=== PATIENT | female | born 1960 | race Caucasian/White ===

== ENCOUNTER → 2018-02-13 14:00 | Outpatient (CLI) | payer BC, SELFPAY ==
--- NOTE | 2018-02-13 14:02 | CDU_ITS ---
Reason For Study: CVA Rt. Velocities/BP Lt. Velocities/BP Prox CCA 75/27 cm/sec. Prox CCA 88/35 cm/sec. Mid CCA 76/29 cm/sec. Mid CCA 82/33 cm/sec. Dist CCA 80/31 cm/sec. Dist CCA 89/32 cm/sec. Prox ICA 94/38 cm/sec. Prox ICA 67/25 cm/sec. Mid ICA 72/31 cm/sec. Mid ICA 107/50 cm/sec. Dist ICA 75/31 cm/sec. Dist ICA 61/16 cm/sec. Rt. ICA/CCA = 1.25. Lt. ICA/CCA = 1.3. Prox ECA 126/313 cm/sec. Prox ECA 72/19 cm/sec. Rt. Vert. 27/9 cm/sec. Lt. Vert. 53/22 cm/sec. Right Extracranial There is intimal thickening but no significant atherosclerotic plaque noted in the right common carotid artery. There is heterogeneous, irregular atherosclerotic plaque noted in the right internal carotid artery. There is intimal thickening but no significant atherosclerotic plaque noted in the right external carotid artery. Antegrade flow is noted in the right vertebral artery. Left Extracranial There is intimal thickening but no significant atherosclerotic plaque noted in the left common carotid artery. There is heterogeneous, irregular atherosclerotic plaque noted in the left internal carotid artery. There is intimal thickening but no significant atherosclerotic plaque noted in the left external carotid artery. Antegrade flow is noted in the left vertebral artery. Procedure Carotid Duplex 04254. Exam performed in department. Interpretation Summary Mild (<50%) stenosis right extracranial internal carotid. Mild (<50%) stenosis left extracranial internal carotid. Flow within the vertebral arteries is antegrade bilaterally. Ordering Physician: Taz Schultz Referring Physician: RAYMOND KELLY Performed By: Ellie Bailey, LEIGH ANNCS, RVT
== END ==
PROVIDERS: Family Provider Family Medicine; PCP Family Medicine; Visit Provider Internal Medicine Cardiovascular Disease
DX: I63.9 Cerebral infarction, unspecified (principal)
CPT/HCPCS: 93880

== ENCOUNTER → 2019-11-23 | Outpatient (CLI) | payer OTHER, SELFPAY ==
[2019-11-20 14:35] VITALS: BMI 27.6
[2019-11-23 09:17] LABS: AST(SGOT) 21 U/L (15-37); Alanine Aminotransfer ALT/SGPT 42 U/L (13-56); Albumin, Serum 3.7 g/dL (3.2-5.0); Alkaline Phosphatase 114 U/L (45-117); Anion Gap 5 (5-15); BUN 14 mg/dL (7-18); BUN/Creat Ratio 12.6 RATIO (10-20); Bilirubin, Direct 0.22 mg/dL (0.00-0.30); Calcium,Total 9.5 mg/dL (8.5-10.1); Chloride 104 mmol/L (98-107); Cholesterol 137 mg/dL (200); Creatinine, Serum 1.11 mg/dL (0.55-1.02); EST Glomerular Filtration Rate 54 mL/min (>60); Est Glom Filt Rate - Afr Amer 65 mL/min (>60); Globulin 3.9 g/dL (2.2-4.2); Glucose 101 mg/dL (74-106); High Density Lipoprotein 30 mg/dL; Potassium 4.1 mmol/L (3.5-5.1); Protein, Total 7.6 g/dL (6.4-8.2); Sodium Level 139 mmol/L (136-145); Triglycerides 255 mg/dL; Very Low Density Lipoprotein 51 mg/dL (5-40)
== END | disposition home or self-care (01) ==
PROVIDERS: PCP Family Medicine; Referring Provider Internal Medicine Cardiovascular Disease; Visit Provider Internal Medicine Cardiovascular Disease
DX: E78.5 Hyperlipidemia, unspecified (principal); I25.10 Atherosclerotic heart disease of native coronary artery without angina pectoris; I10 Essential (primary) hypertension
CPT/HCPCS: 36415; 80048; 80061; 80076

== ENCOUNTER → 2019-12-04 | Outpatient (CLI) | payer OTHER, SELFPAY ==
[2019-11-20 14:35] VITALS: BMI 27.6
--- NOTE | 2019-12-04 14:52 | ECHOD_ITS ---
Reason For Study: CAD/ASHD Procedure This was a 2D Doppler, Color Flow transthoracic echocardiogram. Exam performed in department. Left Ventricle Normal size and thickness. The estimated ejection fraction is 65 %. Stage 2 diastolic dysfunction. No regional wall motion abnormalities noted. Right Ventricle Normal size and thickness. Normal systolic function. Atria Normal left atrium. Normal right atrium. Normal atrial septum. Mitral Valve The mitral valve is structurally normal. No prolapse or stenosis seen. Tricuspid Valve Normal tricuspid valve. Trivial tricuspid valve insufficiency. Right ventricular systolic pressure estimated to be 26 mmHg. Aortic Valve Normal aortic valve. Trisinus/trileaflet aortic valve. Pulmonic Valve Normal pulmonic valve. Great Vessels Normal aortic root. Normal arch. Normal inferior vena cava. Inferior vena cava collapse with sniff. Pericardium/Pleural No pericardial effusion. MMode/2D Measurements & Calculations LVIDd: 4.5 cm IVSd: 0.81 cm Ao root diam: 2.7 cm LVIDs: 3.0 cm LVPWd: 0.83 cm RVDd: 2.5 cm FS: 34.5 % LAV(MOD-bp): 52.0 ml LA A4 area: 16.3 cm2 LA dimension(2D): 3.1 cm LAV(MOD-bp) Indexed: 29.1 ml/m2 LAV(MOD-sp2): 51.1 ml LAV(MOD-sp4): 45.0 ml RA A4 area: 11.9 cm2 Time Measurements MV dec time: 0.17 sec Doppler Measurements & Calculations MV E max oh: 88.0 cm/sec Lat Peak E' Oh: 8.8 cm/sec Med Peak E' Oh: 7.7 cm/sec MV A max oh: 76.9 cm/sec E/E' lat: 10.0 E/E' med: 11.5 MV E/A: 1.1 Ao V2 max: 112.8 cm/sec LV V1 max: 94.0 cm/sec PA V2 max: 91.1 cm/sec Ao max P.1 mmHg LV V1 max P.5 mmHg TR max oh: 231.7 cm/sec TR max P.5 mmHg Interpretation Summary The estimated ejection fraction is 65 %. Stage 2 diastolic dysfunction. Trivial tricuspid valve insufficiency. Right ventricular systolic pressure estimated to be 26 mmHg. There is no comparison study available. Ordering Physician: Taz Schultz Referring Physician: Ellen Power Performed By: Celia Og RDCS, RVT
== END | disposition home or self-care (01) ==
LOC: CVS 14:52
PROVIDERS: PCP Family Medicine; Referring Provider Internal Medicine Cardiovascular Disease; Visit Provider Internal Medicine Cardiovascular Disease
DX: I25.10 Atherosclerotic heart disease of native coronary artery without angina pectoris (principal); I63.9 Cerebral infarction, unspecified; I25.2 Old myocardial infarction; Z95.5 Presence of coronary angioplasty implant and graft
CPT/HCPCS: 93306

== ENCOUNTER → 2019-12-11 | Outpatient (CLI) | payer OTHER, SELFPAY ==
[2019-11-20 14:35] VITALS: BMI 27.6
--- NOTE | 2019-12-11 09:14 | STE_ITS ---
Reason For Study: CAD/ASHD Stress Results Protocol: Sukhjinder Protocol Maximum Predicted HR: 161 bpm Target HR: 137 bpm % Maximum Predicted HR: 88 % DurationHeart Rate Stage (mm:ss) (bpm) BP Comment BASELINE 1:11 71 138/70 STAGE 1 3:00 114 140/70 STAGE 2 3:00 118 148/82NO CHEST PAIN STAGE 3 3:00 141 / RECOVERY 92 120/82 Stress Duration: 10:11 mm:ss Maximum Stress HR: 141 bpm Baseline Echocardiogram Findings The estimated ejection fraction is 65 %. Stress Echo Wall motion Data Resting WM Intermediate WM Stress WM Resting Wall Motion Wall Motion Stress No regional wall motion No regional wall motion abnormalities noted. abnormalities noted. EKG Data The baseline ECG displays normal sinus rhythm. The patient exercised according to the regular Sukhjinder protocol for a total duration of 9:01. The maximum heart rate attained was 160 beats per minute. This was 99% of maximum predicted heart rate. The patient exercised into stage 4 of the Sukhjinder protocol. At peak exercise, upsloping ST changes only were noted, which did not meet the criteria for ischemia. No clinical angina was noted. No arrhythmias noted. Interpretation Summary The estimated ejection fraction is 65 %. Normal, adequate, treadmill echocardiogram. Negative for ischemia by EKG and echocardiographic criteria. No anginal symptoms noted. No arrhythmias noted. Appropriate blood pressure response to exercise. Final LVEF is 75%. Test terminated due to dyspnea. Patient tolerated procedure well. Ordering Physician: Taz Schultz Referring Physician: Taz Schultz Performed By: Ellie Bailey, JORGE, RVT
== END | disposition home or self-care (01) ==
LOC: CVS 09:14
PROVIDERS: PCP Family Medicine; Referring Provider Internal Medicine Cardiovascular Disease; Visit Provider Internal Medicine Cardiovascular Disease
DX: I25.10 Atherosclerotic heart disease of native coronary artery without angina pectoris (principal); I25.2 Old myocardial infarction; I63.9 Cerebral infarction, unspecified; I77.9 Disorder of arteries and arterioles, unspecified; E78.5 Hyperlipidemia, unspecified; I10 Essential (primary) hypertension; F17.200 Nicotine dependence, unspecified, uncomplicated; Z95.5 Presence of coronary angioplasty implant and graft
CPT/HCPCS: 93017; 93350

== ENCOUNTER → 2020-04-25 | Outpatient (CLI) | payer OTHER, SELFPAY ==
[2019-11-20 14:35] VITALS: BMI 27.6
--- NOTE | 2020-04-25 16:21 | RAD_ITS ---
STUDY: X-RAY - RIGHT KNEE REASON FOR EXAM: Female, 59 years old. right knee pain off and on for several years, recently been bothering her for 3 months TECHNIQUE: 4 view(s) of the knee. COMPARISON: None. FINDINGS: Normal visualized distal femur. There is mild sclerosis of the medial tibial plateau. Normal proximal tibiofibular articulation. There is mild joint space narrowing of the medial knee compartment. Normal lateral femorotibial compartment. Normal patellofemoral articulation. There is prepatellar soft tissue swelling. RAD/Knee 4 or More Views IMPRESSION: Mild sclerosis of the medial tibial plateau. Mild joint space narrowing of the medial knee compartment. Prepatellar soft tissue swelling. Electronically Signed: Brant Archer MD at 19:51 EDT , Service support ,
== END | disposition home or self-care (01) ==
LOC: MTRAD 16:19
PROVIDERS: PCP Family Medicine; Referring Provider Family Medicine; Visit Provider Family Medicine
DX: M25.561 Pain in right knee (principal)
CPT/HCPCS: 73564

== ENCOUNTER 2020-05-09 10:00 | Outpatient (RCR) | payer OTHER, SELFPAY ==
[2019-11-20 14:35] VITALS: BMI 27.6
--- NOTE | 2020-05-04 08:33 | HP.PTEVAL ---
Patient's Visit Information YOLETTE RICHARD is a 59 year old F referred to Physical Therapy by Dr. Ellen Power MD with a diagnosis of R knee OA. Date of Evaluation: 05/04/20 Physical Therapist: Pierce Ervin, PT, ATC - Visit Plan Frequency: 1x/Week Duration: 2 Weeks Plan: Issue and instruct pt on HEP of core and R LE VMO strengthening - Subjective Pt reports she fell and landed on her R knee 6 years ago. Ptl reports she has had intermittent episodes of pain since. Pt notes she had xrays which revealed OA of her R knee. Pt reports most of her pain is located along the superior aspect of her R patella. No tingling or numbness in R LE. Pt reports occasional sleep difficulty secondary to pain. Pt reports getting off the toilet and negotiating stairs increases her pain. Pt also notes she would like to be able to ride a bike, but she is not able to at this time secondary to pain. Pt reports she is not limited by work as she works from home. 0/10 pain at rest, 7/10 pain at worst. - Pain R knee Pain Intensity (Out of 10): 0 Pain Intensity Range: 7 - Objective Neuro: B LE sensation is WNL to light touch. B achilles reflex= 2/3. Palpation: Pt has mild crepitus with R Knee ROM. No obvious deformity at thsi time. Girth at joint line: B knees are 37 cm. ROM: B knees are WNL. Strength: B knee flexion 5/5, B knee ext 4-/5. Special tests: Pos Mcconnels sign for PFS - Goals Goal 1:: I with HEP Goal Time Frame: 2 Weeks - Rehabilitation Potential Physical Therapy Diagnosis: R knee pain, weakness, and difficulty with stair negotiation secondary to R knee patella femoral degeneration Rehabilitation Potential: Good - Anticipated Interventions Patient/Client Instruction: Educate patient on: Condition, Plan of Care For the Purpose of:: To improve self management Therapeutic Exercise to Include: Strength training, Endurance training, Balance training, Flexibilty training, Dynamic Lumbar Stabilization For the Purpose of:: To decrease pain, To increase ROM, To improve muscle performance and motor function Cryotherapy (ice pack, ice massage): Yes For the Purpose of:: To decrease pain Thank you for the opportunity to evaluate your patient. For Medicare and Medicare HMO plans, please review the plan of care and approve it. It will need to be FAXED BACK to us at [phone] for Medicare purposes. For Medicare only, by signing this I certify the plan of care. Please let me know if there are questions or concerns regarding this plan of care. Physician Signature: Date:
--- NOTE | 2020-07-01 09:41 | HP.PT.NRP ---
YOLETTE RICHARD was seen in my office for initial evaluation on 05/04/20. The following Plan of Care was established for this patient: Initial Frequency: 1x/Week Initial Duration: 2 Weeks Patient/Client Instruction: Educate patient on: Condition, Plan of Care For the Purpose of:: To improve self management Therapeutic Exercise to Include: Strength training, Endurance training, Balance training, Flexibilty training, Dynamic Lumbar Stabilization For the Purpose of:: To decrease pain, To increase ROM, To improve muscle performance and motor function Cryotherapy (ice pack, ice massage): Yes For the Purpose of:: To decrease pain This patient was last seen in our office . Pertinent comments regarding their Physical therapy will appear below: Pt was treated for 2 PT visits for R knee pain through the date of 05/09/20. Pt has not returned through todays date and is discontinued at this time. At this point I will be discontinuing this patient from physical therapy. I would be happy to see this patient again in the future if found appropriate by the physician. Thank you! Pierce Ervin, PT, ATC
== END 2020-05-09 19:00 | disposition home or self-care (01) ==
LOC: PT 10:00
PROVIDERS: PCP Family Medicine; Referring Provider Family Medicine; Visit Provider Family Medicine
DX: M25.561 Pain in right knee (principal)
CPT/HCPCS: 97110; 97161

== ENCOUNTER → 2021-05-31 15:47 | Outpatient (CLI) | payer OTHER, SELFPAY ==
[2021-05-31 17:39] LABS: AST(SGOT) 22 U/L (15-37); Alanine Aminotransfer ALT/SGPT 40 U/L (13-56); Albumin, Serum 3.6 g/dL (3.2-5.0); Alkaline Phosphatase 120 U/L (45-117); Anion Gap 3 (5-15); BUN 13 mg/dL (7-18); BUN/Creat Ratio 14.1 RATIO (10-20); Bilirubin, Direct 0.09 mg/dL (0.00-0.30); Calcium,Total 9.2 mg/dL (8.5-10.1); Chloride 106 mmol/L (98-107); Cholesterol 147 mg/dL (200); Creatinine, Serum 0.92 mg/dL (0.55-1.02); EST Glomerular Filtration Rate 66 mL/min (>60); Est Glom Filt Rate - Afr Amer 80 mL/min (>60); Globulin 3.7 g/dL (2.2-4.2); Glucose 95 mg/dL (74-106); High Density Lipoprotein 31 mg/dL; Potassium 3.5 mmol/L (3.5-5.1); Protein, Total 7.3 g/dL (6.4-8.2); Sodium Level 140 mmol/L (136-145); Triglycerides 288 mg/dL; Very Low Density Lipoprotein 58 mg/dL (5-40)
== END ==
PROVIDERS: PCP Family Medicine; Referring Provider Physician Assistant Medical; Visit Provider Physician Assistant Medical
DX: I10 Essential (primary) hypertension (principal); I25.10 Atherosclerotic heart disease of native coronary artery without angina pectoris; I63.9 Cerebral infarction, unspecified; E78.2 Mixed hyperlipidemia; E78.5 Hyperlipidemia, unspecified
CPT/HCPCS: 36415; 80048; 80061; 80076

== ENCOUNTER → 2022-06-14 | Outpatient (CLI) | payer OTHER, SELFPAY ==
[2022-06-14 10:13] LABS: AST(SGOT) 19 U/L (15-37); Alanine Aminotransfer ALT/SGPT 36 U/L (13-56); Albumin, Serum 3.5 g/dL (3.2-5.0); Alkaline Phosphatase 111 U/L (45-117); Bilirubin, Direct 0.17 mg/dL (0.00-0.30); Cholesterol 127 mg/dL (200); Globulin 3.8 g/dL (2.2-4.2); High Density Lipoprotein 33 mg/dL; Protein, Total 7.3 g/dL (6.4-8.2); Triglycerides 213 mg/dL; Very Low Density Lipoprotein 43 mg/dL (5-40)
== END | disposition home or self-care (01) ==
PROVIDERS: PCP Family Medicine; Referring Provider Nurse Practitioner Family; Visit Provider Nurse Practitioner Family
DX: E78.2 Mixed hyperlipidemia (principal)
CPT/HCPCS: 36415; 80061; 80076

== ENCOUNTER → 2022-07-11 | Outpatient (CLI) | payer OTHER, SELFPAY ==
--- NOTE | 2022-07-11 08:48 | ART_ITS ---
Reason For Study: PVD Procedure A bilateral lower extremity continuous wave Doppler with analog waveform analysis,segmental pressures,and ankle brachial indexes with exercise. Left Segmental Pressures Left brachial= 157mmHg. Left thigh = 185mmHg. Left calf = 164mmHg. Left posterior tibial artery = 158mmHg. Left dorsalis pedis artery = 163mmHg. The left posterior tibial artery waveforms are triphasic. The left dorsalis pedis waveforms are triphasic. Right Segmental Pressures Right brachial= 144mmHg. Right thigh = 155mmHg. Right calf = 169mmHg. Right posterior tibial artery = 171mmHg. Right dorsalis pedis artery = 136mmHg. The right posterior tibial artery waveforms are triphasic. The right dorsalis pedis waveforms are triphasic. Indices The right ankle brachial index by the dorsalis pedis is 0.87. The right ankle brachial index by the posterior tibial artery is 1.09. The right post exercise ankle brachial index is 1.14. The left ankle brachial index by the dorsalis pedis is 1.04. The left ankle brachial index by the posterior tibial artery is 1.01. The left post exercise ankle brachial index is 1.04. VL/Lower Ext Art Exam w/ Exercise Interpretation Summary Triphasic Doppler waveforms are noted at ankle level bilaterally. Pulse-volume recordings appear satisfactory at low thigh, calf, and ankle levels bilaterally. Resting ankle-br achial indices are normal bilaterally. Following a period of exercise, ankle pressures remain fair ly constant bilaterally, and ankle-brachial indices increase slightly bilaterally. There is no evidence of significant arterial occlusive disease in thge lower ex tremities bilaterally. Ordering Physician: Taz Anderson Referring Physician: Ellen Power M.D. Performed By: XIOMARA HUDSON Lila
== END | disposition home or self-care (01) ==
PROVIDERS: PCP Family Medicine; Referring Provider Podiatrist; Visit Provider Podiatrist
DX: I73.9 Peripheral vascular disease, unspecified (principal)
CPT/HCPCS: 93924

== ENCOUNTER 2022-08-06 09:20 | Emergency (ER) | payer OTHER, SELFPAY ==
[2022-08-06 09:20] VITALS: BP 166/90; PULSE 74; RESP 16; TEMP 36.6; O2SAT 98; BMI 27.4
[2022-08-06 09:33] VITALS: BP 145/80; PULSE 81; RESP 18; O2SAT 96
--- NOTE | 2022-08-06 09:49 | EKG12_ITS ---
Test Reason : HYPERTENSION Blood Pressure : / mmHG Vent. Rate : 061 BPM Atrial Rate : 061 BPM P-R Int : 168 ms QRS Dur : 080 ms QT Int : 406 ms P-R-T Axes : 067 023 042 degrees QTc Int : 408 ms Normal sinus rhythm Low voltage QRS Nonspecific ST abnormality Abnormal ECG Confirmed by MARY ARCHULETA, MARIA GUADALUPE ([id number]), multimedia editor MANUEL HENAO ([id number]) on 08/08/2022 11:37:40 AM Referred By: Confirmed By:MARIA GUADALUPE HERNANDEZ MD
--- NOTE | 2022-08-06 09:50 | EDS_ITS ---
HPI History of Present Illness Chief Complaint: Hypertension Informant: patient and spouse/S.O. Onset/Context/Timing Onset: Yesterday Context: Gradual Onset Timing: Continuous Quality: pressure Location: back of head, neck, and into ears Current Severity: Mild Maximum Severity: Moderate Worsened by: nothing Relieved by: nothing Associated Symptoms Associated Symptoms: none Narrative Narrative: Patient presenting with pressure during her head and neck and ears since last night. Gradual in onset, persistent after woke up this morning. She denies any chest discomfort, trouble breathing, palpitations, focal neurologic symptoms except for some tingling and discomfort in her distal right forearm and hand 2 days ago but has not recurred since then. No associated weakness with that. She denies any vision trouble or photophobia. Checked her blood pressure last night and it was in the 160s as it is this morning, but she had not taken her a.m. blood pressure medication yet, which we had her do here in the ED since she brought them with her. She denies any dizziness or vertiginous symptoms. She states she had a small stroke in the past that left her with no residual deficits but it was associated with headache and vertiginous symptoms. [facility] Medical History (Updated 08/06/22 @ 11:[address] Sebastian Alcocer MD) Atherosclerosis of coronary artery of [place] heart without angina pectoris Carotid artery disease CVA (cerebral vascular accident) Hyperlipidemia Hypertension Nicotine dependence Old inferior wall myocardial infarction Home Medications aspirin 81 mg tablet,delayed release (Adult Aspirin Regimen) 81 mg PO DAILY 0 02/13/19 [History Last Taken Unknown] atorvastatin 80 mg tablet (Lipitor) 80 mg PO QDAY #90 tabs 05/31/22 [Rx Last Taken Unknown] clopidogrel 75 mg tablet (Plavix) 75 mg PO QDAY #90 tabs 05/31/22 [Rx Last Taken Unknown] hydrochlorothiazide 12.5 mg tablet 12.5 mg PO DAILY #90 tabs 05/31/22 [Rx Last Taken Unknown] lisinopril 5 mg tablet 5 mg PO QDAY #90 tabs 05/31/22 [Rx Last Taken Unknown] Allergy/AdvReac Type Severity Reaction Status Date / Time No Known Allergies Allergy Verified 08/06/22 09:22 Family History (Reviewed 05/31/22 @ 16:21 by Samuel Darling MAINTENANCE OF WAY SUPERINTENDENT, MAINTENANCE OF WAY SUPERINTENDENT-C) Father Sudden cardiac age 42 Surgical History History of coronary artery stent placement (06/04/15) Social History Smoking Status: Current every day smoker tobacco type: cigarettes alcohol intake: current alcohol intake frequency: holidays/special occasions only ROS ROS ED Constitutional Constitutional ED: Denies chills or fever(s) Eyes Eyes: Denies change in vision or diplopia ENT ENT ED: Reports ear pain bilateral; Denies rhinorrhea or sore throat Cardiovascular Cardiovascular: Denies chest pain or palpitations Respiratory/Chest Respiratory/Chest: Denies cough or dyspnea Gastrointestinal Gastrointestinal: Denies abdominal pain, diarrhea, nausea or vomiting Genitourinary Genitourinary ED: Denies dysuria or hematuria Musculoskeletal Musculoskeletal: Reports neck pain; Denies back pain Integumentary Denies abscess or rash Neurologic Neurologic: Reports headache(s); Denies paresthesias or weakness Psychiatric Psychiatric: Denies anxiety or suicidal thoughts EXAM Physical Exam Const Vital Signs: 08/06/22 09:20 08/06/22 09:33 08/06/22 10:27 Temperature 97.8 F Temperature Source Temporal Pulse Rate 74 81 Respiratory Rate 16 18 Blood Pressure 166/90 H 145/80 H Blood Pressure Mean 115 101 Pulse Ox 98 96 94 Oxygen Delivery Method Room Air Room Air Room Air Positive well nourished and well developed General Appearance ED: well developed and NAD HEENT Reports TM's clear and moist mucous membranes normocephalic and atraumatic Tympanic Membrane ED: Yes TM's clear Eyes PERRL and EOMs intact bilaterally Neck full ROM, no lymphadenopathy and supple Neck Narrative: No carotid bruit bilaterally. Resp normal respiratory effort and clear to auscultation bilaterally Cardio regular rate, regular rhythm and no murmurs Rate: Negative for tachycardic GI non-tender and non-distended Auscultation: normoactive bowel sounds Palpation: soft Back/Spine no CVA tenderness General Back: other FROM Extremity normal to inspection Extremity Narrative: not able to palpate DP pulses; 3 sec CR bilat. 2+/4 bilat radial pulses. General Extremety ED: Negative for edema, pulses abnormal or tenderness General Extremity: Negative for edema or pulses abnormal Neuro oriented x3, CN's II-XII intact bilaterally and no sensory deficits noted Sensorium / Orientation: awake and alert Motor Exam: strength 5/5 throughout Skin no rashes or lesions noted and no wounds MDM MDM MDM Narrative Medical decision making narrative: Shortly after the patient took her morning lisinopril 5 mg, her blood pressure was 145/80, clearly not due to the lisinopril that she took. Couple hours later when I rechecked her she was feeling a little better and her blood pressure was 124/89. She is on nothing else for blood pressure. I advised her it is possible she was having symptoms from her blood pressure elevation, but I was more concerned about her having atypical symptoms of angina with a reflex elevation of her blood pressure; the numbers were not emergently high even before she got here. Her work-up is negative. She has been having symptoms all night and morning, and with 1 troponin that is negative and a normal EKG I do not think she needs any further work-up here in the hospital emergently. Furthermore I did a CT of her head it shows nothing acute, there are some chronic changes. Patient is concerned about when her blood pressure does go up. I reassured her, she needs to follow-up with her doctor. I would not change any of her chronic medications based on what we know right now especially with her numbers being 124/89. I recommend checking her blood pressure twice a day, starting with a couple hours after she takes her medication, and once at night, and if she has symptoms she can recheck it again so that she can formulate a log for her doctor. Lab Data Attestation: I reviewed the patient's lab results. Labs: Laboratory Results - last 24 hr 08/06/22 08/06/22 11:00 11:00 WBC 8.8 RBC 5.15 Hgb 15.9 H Hct 46.3 MCV 89.9 MCH 30.9 MCHC 34.3 RDW Std Deviation 43.8 RDW Coeff of Josette 13.3 Plt Count 224 MPV 9.6 Immature Gran % (Auto) 0.600 Neut % (Auto) 65.4 Lymph % (Auto) 26.6 [place] % (Auto) 5.2 Eos % (Auto) 1.7 Baso % (Auto) 0.5 Absolute Neuts (auto) 5.8 Absolute Lymphs (auto) 2.35 Nucleated RBC % 0 Sodium 140 Potassium 3.5 Chloride 107 Carbon Dioxide 29.0 Anion Gap 4 L BUN 13 Creatinine 1.00 Estim Creat Clear Calc 51.02 Est GFR (MDRD) Af Amer 73 Est GFR (MDRD) Non-Af 60 BUN/Creatinine Ratio 13.0 Glucose 118 H Calcium 9.8 Troponin I High Sens 6 Radiography Diagnostic Testing: Clinical Impression(s) from Imaging Studies Brain CT 08/06/22 10:15 IMPRESSION: Chronic involutional changes of the brain. Old lacunar infarcts in the right basal ganglion as well as the right thalamus. Electronically Signed: Jackson Strong MD at 10:32 EST , Rhythm Strip Rhythm Strip: Sinus Rhythm Rate: 60 Ectopy: None EKG Initial EKG: Attestation: I personally reviewed and interpreted this EKG as follows: Interpretation: Sinus Rhythm and No Acute Injury Pattern Prior EKG tracings: available for review Prior: Unchanged Discharge Plan Triage Chief Complaint: Hypertension ED Provider: Sebastian Alcocer Dx/Rx/DC Orders Clinical Impression: Episode of hypertension, Discomfort of both ears, Acute neck pain, Headache Instructions: Hypertension Dc Prescriptions: No Action aspirin [Adult Aspirin Regimen] 81 mg tablet,delayed release (DR/EC) 81 mg PO DAILY atorvastatin [Lipitor] 80 mg tablet 80 mg PO QDAY Qty: 90 3RF clopidogrel [Plavix] 75 mg tablet 75 mg PO QDAY Qty: 90 3RF hydrochlorothiazide 12.5 mg tablet 12.5 mg PO DAILY Qty: 90 3RF lisinopril 5 mg tablet 5 mg PO QDAY Qty: 90 3RF Primary Care Provider: Ellen Power Referrals: Ellen Power MD [Primary Care Provider] - 1-2 Weeks Disposition Disposition: Home, Self Care
--- NOTE | 2022-08-06 10:15 | CT_ITS ---
STUDY: CT BRAIN WITHOUT CONTRAST REASON FOR EXAM: Female, 61 years old. Headache. Hypertension. History of stroke. RADIATION DOSAGE (If Supplied By Facility): CTDIvol = ( 44.99 ) mGy, DLP = ( 812.98 ) mGycm TECHNIQUE: Transaxial CT imaging of the brain was performed without administration of intravenous contrast material. Individualized dose optimization techniques were used for this CT. COMPARISON: No relevant priors. FINDINGS: Normal soft tissue structures. Normal calvarium. There is mild cerebral atrophy with widening of the extra-axial spaces and ventricular dilatation. There are areas of decreased attenuation within the white matter tracts of the supratentorial brain, consistent with microvascular disease changes. There is evidence of a old lacunar infarcts in the right basal ganglion and right thalamus. Normal brainstem. Normal cerebellum. There is no intracranial hemorrhage. There are no findings of an acute ischemic infarction. Atherosclerotic calcification of the cavernous portions of the internal carotid arteries bilaterally. Normal visualized paranasal sinuses. CT/Brain/Head without Contrast IMPRESSION: Chronic involutional changes of the brain. Old lacunar infarcts in the right basal ganglion as well as the right thalamus. Electronically Signed: Jackson Strong MD at 10:32 EST ,
[2022-08-06 10:27] VITALS: O2SAT 94
--- NOTE | 2022-08-06 11:04 | ED.RN ---
Patient refused IV access. Straight stick was done for bloodwork.
[2022-08-06 11:06] LABS: Absolute Lymphocyte Count 2.35 X10^3/uL (0.83-4.51); Absolute Neutrophil Count 5.8 X10^3/uL (2.0-7.7); Basophil# 0.04 X10^3/uL; Basophil% 0.5 % (0-1); Eosinophil# 0.15 X10^3/uL; Eosinophils% 1.7 % (0-5); Hematocrit 46.3 % (37-47); Hemoglobin 15.9 g/dL (12.0-15.0); Lymphocyte # 2.35 X10^3/ul (0.83-4.51); Lymphocyte % 26.6 % (19-41); Mean Corp Hgb Conc 34.3 g/dL (32-36); Mean Corpuscular Hgb 30.9 pg (27.0-32.0); Mean Corpuscular Volume 89.9 fL (81-99); Mean Platelet Vol. 9.6 fl (6.2-12.0); Monocyte# 0.46 X10^3/uL; Monocyte% 5.2 % (0-10); NRBC Flagged by Analyzer 0 % (0-5); Neutrophil # 5.78 X10^3/uL (2.7-7.7); Neutrophil % 65.4 % (47-70); Platelet Count 224 K/mm3 (150-450); RBC Distribution Width CV 13.3 % (11.6-14.6); RBC Distribution Width SD 43.8 fl (35.1-43.9); Red Blood Count 5.15 M/mm3 (4.2-5.4); White Blood Count 8.8 K/mm3 (4.4-11.0)
== END 2022-08-06 12:04 | disposition home or self-care (01) ==
PROVIDERS: Emergency Provider Emergency Medicine; PCP Family Medicine; Visit Provider Emergency Medicine
DX: I10 Essential (primary) hypertension (principal); M54.2 Cervicalgia; F17.210 Nicotine dependence, cigarettes, uncomplicated; E78.5 Hyperlipidemia, unspecified; R51.9 Headache, unspecified; I25.10 Atherosclerotic heart disease of native coronary artery without angina pectoris; H92.03 Otalgia, bilateral
CPT/HCPCS: 70450; 80048; 84484; 85025; 93005; 99283

== ENCOUNTER → 2023-05-31 | Outpatient (CLI) | payer OTHER, SELFPAY ==
[2023-05-31 09:46] LABS: AST(SGOT) 17 U/L (15-37); Alanine Aminotransfer ALT/SGPT 33 U/L (13-56); Albumin, Serum 3.4 g/dL (3.2-5.0); Alkaline Phosphatase 104 U/L (45-117); Bilirubin, Direct 0.13 mg/dL (0.00-0.30); Cholesterol 113 mg/dL (200); Globulin 3.7 g/dL (2.2-4.2); High Density Lipoprotein 30 mg/dL; Protein, Total 7.1 g/dL (6.4-8.2); Triglycerides 290 mg/dL; Very Low Density Lipoprotein 58 mg/dL (5-40)
== END | disposition home or self-care (01) ==
LOC: LAB 08:11
PROVIDERS: PCP Family Medicine; Referring Provider Nurse Practitioner Family; Visit Provider Nurse Practitioner Family
DX: E78.00 Pure hypercholesterolemia, unspecified (principal)
CPT/HCPCS: 36415; 80061; 80076